=== PATIENT | female | born 1990 | race Caucasian/White ===

== ENCOUNTER 2017-06-27 05:59 | Day surgery (SDC) | payer OTHER ==
[2017-06-27] MEDS ORDERED: LIDOCAINE 1% (MPF) 30 ML INJ (07:05)
[2017-06-27] MEDS ORDERED: morphine SULFATE/PF (10 MG/10 ML) INJ (07:06)
[2017-06-27] MEDS ORDERED: MIDAZOLAM 1 MG/ML 2 ML INJ (07:11)
[2017-06-27] MEDS ORDERED: morphine 2 MG INJ IV (08:00)
[2017-06-27] MEDS: NEOMYC/POLYMYX/BACIT 30 GM OINT (08:29)
[2017-06-27] MEDS: ROPIVACAINE 0.5 % 30 ML VIAL (08:34)
[2017-06-27] MEDS ORDERED: LIDOCAINE 2% (SDV) 5 ML INJ (08:50)
[2017-06-27] MEDS ORDERED: ONDANSETRON 4 MG INJ (08:50)
[2017-06-27] MEDS ORDERED: CEFAZOLIN 1 GM INJ (08:50)
[2017-06-27] MEDS ORDERED: PROPOFOL 20 ML (08:50)
[2017-06-27] MEDS ORDERED: MEPERIDINE 25 MG INJ IV (09:30)
[2017-06-27] MEDS ORDERED: LABETALOL HCL 20MG INJ IV (09:30)
[2017-06-27] MEDS ORDERED: DIPHENHYDRAMINE 50 MG INJ IV (09:30)
[2017-06-27] MEDS ORDERED: MIDAZOLAM 1 MG/ML 2 ML INJ IV (09:30)
[2017-06-27] MEDS ORDERED: HYDROmorphONE (0.2 MG/ML) 10ML SYG IV ×2 (09:30)
[2017-06-27] MEDS ORDERED: ONDANSETRON 4 MG INJ IV (09:30)
[2017-06-27] MEDS ORDERED: FENTAnyl 50 MCG/ML VIAL IV (09:30)
[2017-06-27] MEDS ORDERED: METOCLOPRAMIDE 10 MG INJ IV (09:30)
== END 2017-06-27 10:30 | disposition home or self-care (01) ==
LOC: SDS 05:59
DX: S83.241A Other tear of medial meniscus, current injury, right knee, initial encounter (principal); M94.261 Chondromalacia, right knee; E66.9 Obesity, unspecified; F41.8 Other specified anxiety disorders; X58.XXXA Exposure to other specified factors, initial encounter; Y93.89 Activity, other specified; Y92.89 Other specified places as the place of occurrence of the external cause; Y99.8 Other external cause status
CPT/HCPCS: 29881; 82306